=== PATIENT | male | born 1985 | race Caucasian/White ===

== ENCOUNTER 2019-01-05 11:28 | Day surgery (SDC) | payer OTHER ==
[~2019-01-05] VITALS: Ht 185.4 cm; Wt 94.0 kg
[2019-01-05 11:53] VITALS: BP 125/88
[2019-01-05] MEDS ORDERED: LACTATED RINGERS 1,000 ML IV SCH ×2 (11:55→15:32)
[2019-01-05] MEDS ORDERED: PLEASE ENTER HEIGHT AND WEIGHT MC SCH (12:00)
[2019-01-05] MEDS ORDERED: ROCURONIUM 10MG/ML,5ML ONE (12:44)
[2019-01-05] MEDS ORDERED: MIDAZOLAM 1 MG/ML, 2ML ONE (12:54)
[2019-01-05] MEDS ORDERED: FENTANYL PF 250 MCG/5ML ONE (12:55)
[2019-01-05] MEDS ORDERED: BUPIVACAINE/EPI 0.5% 1:200K ONE (13:19)
[2019-01-05] MEDS ORDERED: FENTANYL PF 100 MCG/2ML IV PRN (14:30)
[2019-01-05] MEDS ORDERED: ACETAMINOPHEN 325 MG TABLET PO PRN (14:30)
[2019-01-05] MEDS ORDERED: OXYcodone 5 MG/5 ML ORAL.SOL UDC PO PRN (14:30)
[2019-01-05] MEDS ORDERED: HYDROmorphone 2 MG/ML, 1ML IVPush PRN (14:30)
[2019-01-05] MEDS ORDERED: MEPERIDINE/PF 25MG/0.5ML IVPush PRN (14:30)
[2019-01-05] MEDS ORDERED: LABETALOL 5MG/ML, 20ML IV PRN (14:30)
[2019-01-05] MEDS ORDERED: ONDANSETRON 2MG/ML, 2ML IV PRN (14:30)
[2019-01-05] MEDS ORDERED: hydrALAzine 20 MG/ML, 1ML IV PRN (14:30)
[2019-01-05] MEDS ORDERED: PROMETHAZINE 25 MG/ML, 1ML IV PRN (14:30)
[2019-01-05] MEDS ORDERED: PROPOFOL 10 MG/ML, 20ML ONE (14:57)
[2019-01-05] MEDS ORDERED: ONDANSETRON 2MG/ML, 2ML ONE ×2 (14:58)
[2019-01-05] MEDS ORDERED: DEXAMETHASONE 4 MG/ML, 1ML ONE ×2 (14:58)
[2019-01-05] MEDS ORDERED: CEFAZOLIN 1,000 MG ONE ×2 (14:58)
[2019-01-05] MEDS ORDERED: KETOROLAC 30 MG/1 ML ONE (14:58)
[2019-01-05] MEDS ORDERED: ACETAMINOPHEN 650 MG/20.3 ML UDC ONE (15:40)
[2019-01-05] MEDS ORDERED: MEPERIDINE/PF 25MG/ML,1ML ONE (15:40)
[2019-01-05] MEDS ORDERED: OXYcodone 5 MG/5 ML ORAL.SOL UDC ONE (15:40)
[2019-01-05] MEDS ORDERED: PROMETHAZINE 25 MG/ML, 1ML ONE (15:45)
[2019-01-05] MEDS ORDERED: ONDANSETRON 2MG/ML, 2ML IVPush PRN (16:00)
[2019-01-05] MEDS ORDERED: morphine SULFATE 10 MG/ML, 1ML IVPush PRN (16:00)
== END 2019-01-05 17:50 | disposition home or self-care (01) ==
LOC: OUT 11:28
PROVIDERS: ATTEND Surgery
DX: K40.30 Unilateral inguinal hernia, with obstruction, without gangrene, not specified as recurrent (principal); F12.90 Cannabis use, unspecified, uncomplicated; Z98.890 Other specified postprocedural states
CPT/HCPCS: 49507; 64486; C1781; J0690; J1100; J1885; J2175; J2250; J2405; J2550; J2704; J3010; J7120

== ENCOUNTER 2019-05-20 16:56 | Emergency (ER) | payer OTHER ==
[~2019-05-20] VITALS: Ht 185.4 cm; Wt 98.0 kg
--- NOTE | 2019-05-20 17:29 | NUR ---
PT BIB [place] AFTER MAKING THREATS TO HARM SELF TO FAMILY. PT STATES THESE WERE "EMPTY THREATS" AND DENIES HAVING PLAN TO KILL SELF. PT PREVIOUSLY TOLD [facility] THAT HE HAD AN IDEA TO CUT HIS OWN THROAT OR [place]UMP [place]. PT IS ADAMANT THAT HE HAS NO PLAN THAT HE WOULD ACTUALLY GO THROUGH WITH AND THAT THESE WERE "EMPTY THREATS TO HIS FAMILY. PT IS TACHYCARDIC, ALL OTHER VSS ON RA. MD TO BS TO ASSESS PT. ORDERS RECEIVED. LABS DRAWN. PT UPSELF TO RR WITH STEADY GAIT TO COLLECT UTOX SAMPLE. AWAITING RESUTLS. PT IS IS SECURED ROOM [facility] SITTER AT DOORWAY. 1 BAG OF BELONGINGS LABELED AND PLACED IN LOCKER LOCKER. NO NEEDS AT THIS TIME. DINNER TRAY ORDERED.
[2019-05-20 17:33] LABS: BASOPHILS # (AUTO) 0.05 x10^3/uL (0-0.1); BASOPHILS % (AUTO) 1 % (0-1); EOSINOPHILS % (AUTO) 1 % (1-7); LYMPHOCYTES # (AUTO) 1.39 x10^3/uL (1-3.4); LYMPHOCYTES % (AUTO) 18 % (22-44); MD NO; MEAN CORPUSCULAR HEMOGLOBIN 32.6 pg (27.5-34.5); MEAN CORPUSCULAR HGB CONC 34.1 g/dL (33.2-36.2); MEAN CORPUSCULAR VOLUME 95.5 fL (81-97); MEAN PLATELET VOLUME 8.1 fL (7.4-10.4); MONOCYTES # (AUTO) 0.31 x10^3/uL (0.2-0.8); MONOCYTES % (AUTO) 4 % (2-9); NEUTROPHILS # (AUTO) 5.98 x10^3/uL (1.8-6.8); NEUTROPHILS % (AUTO) 76 % (42-75); PLATELET COUNT 317 x10^3/uL (130-400); RED BLOOD COUNT 5.12 x10^6/uL (4.38-5.82); RED CELL DISTRIBUTION WIDTH 12.3 % (9.4-14.8)
[2019-05-20 17:44] LABS: ALBUMIN 4.4 g/dL (3.4-5.0); ANION GAP 8 mmol/L (5-15); CALCIUM 8.7 mg/dL (8.5-10.1); CHLORIDE 109 mmol/L (98-107); CREATININE 0.88 mg/dL (0.7-1.3)
--- NOTE | 2019-05-20 17:45 | NUR ---
LUNCH TRAY GIVEN TO PT.
[2019-05-20 17:47] LABS: SALICYLATE LEVEL < 1.7 mg/dL (2.8-20.0)
[2019-05-20 18:08] LABS: AMPHETAMINE SCREEN, URINE Negative (Negative); BARBITURATE SCREEN, URINE Negative (Negative); BENZODIAZEPINE SCREEN, URINE Negative (Negative); CANNABINOID SCREEN, URINE Positive (Negative); COCAINE SCREEN, URINE Negative (Negative); METHADONE SCREEN, URINE Negative (Negative); OPIATE SCREEN, URINE Negative (Negative)
--- NOTE | 2019-05-20 19:03 | NUR ---
PT PACING IN SECURED ROOM. SITTER AT DOORWAY FOR CONTINUOUS MONITORING. PT DECLINED TO EAT LUNCH TRAY BUT WANTS TO KEEP IT IN ROOM FOR NOW. PT DENIES NEEDS AND IS CALM, COOPERATIVE AND POLITE.
--- NOTE | 2019-05-20 20:05 | NUR ---
PT CONTINUES PACING IN ROOM. PT MORE AGITATED WITH SITUATION. PT EDUCATED ON POC SEVERAL TIMES. PT REQUESTING TO BE REBRETHYLIZED IN HOPES OF BEING ASSESSED SOONER. PT REMAINS OVER LEGAL LIMIT. PT STATES HE JUST WANTS TO LEAVE AND IS REFUSING TO EAT DINNER TRAY AND REFUSING ALL DRINKS OFFERED. PT STATES, "I DON'T WANT ANYTHING FROM THIS ESTABLISHMENT. IT'S A BROWER GOUGE AND MY DAD IS GONNA HAVE TO PAY IT." SITTER REMAINS AT DOOR WAY FOR CONTINUOUS MONITORING. ROOM SECURED.
--- NOTE | 2019-05-20 21:36 | NUR ---
PT STILL PACING IN SECURED ROOM, TALKING TO HIMSELF UNDER HIS BREATH. PT REMAINS COOPERATIVE. NO OUTBURSTS, YELLING OR CUSSING. SITTER AT DOORWAY FOR CONTINUOUS MONITORING. NO NEEDS EXPRESSED.
--- NOTE | 2019-05-20 21:40 | NUR ---
REPORT OF PT FROM LEONARDO PATRICK AND ASSUMING CARE OF PT AT THIS TIME.
--- NOTE | 2019-05-20 21:58 | NUR ---
PT PACING ROOM AT THIS TIME. PT REFUSING OFFERS FOR MEDS, FLUIDS, AND FOODS. PT DENIES ANY OTHER NEEDS AT THIS TIME. SITTER OUTSIDE OF ROOM FOR DIRECT OBSERVATION OF PT.
--- NOTE | 2019-05-20 22:20 | NUR ---
PT CALM IN ROOM AT THIS TIME AND DENIES ANY NEEDS AT THIS MOMENT.
--- NOTE | 2019-05-21 00:55 | NUR ---
pt sitting on gurney resting comfortably at this time. pt denies any other needs at this time.
--- NOTE | 2019-05-21 01:53 | NUR ---
report given to telepsych doctor
--- NOTE | 2019-05-21 02:12 | NUR ---
PT GIVEN ONE BAG OF BELONGINGS AND HIS DC PAPERWORK. ALL QUESTIONS ANSWERED.
[2019-05-21 02:13] VITALS: BP 121/74
== END 2019-05-21 02:15 | disposition home or self-care (01) ==
LOC: ED 18:05
DX: R45.851 Suicidal ideations (principal); F31.9 Bipolar disorder, unspecified; F10.120 Alcohol abuse with intoxication, uncomplicated
CPT/HCPCS: 36415; 80048; 80307; 82040; 85025; 99284

== ENCOUNTER 2020-08-03 19:12 | Emergency (ER) | payer SELFPAY ==
[~2020-08-03] VITALS: Ht 185.4 cm; Wt 94.0 kg
[2020-08-03] MEDS ORDERED: ONDANSETRON 2MG/ML, 2ML IVPush ONE (19:30)
[2020-08-03] MEDS ORDERED: HYDROmorphone 2 MG/ML, 1ML IVPush PRN (19:30)
[2020-08-03] MEDS ORDERED: SODIUM CHLORIDE FLUSH 10ML SYR IVF ONE (19:30)
--- NOTE | 2020-08-03 19:30 | NUR ---
AT BEDSIDE FOR ASSESSMENT
--- NOTE | 2020-08-03 19:38 | NUR ---
PT COMES IN TODAY C/O RIGHT LOWER QUADRANT PAIN. PT STATES THAT AROUND 1600 TODAY HE WAS SLEEPING AND WOKE UP UNABLE TO STAND DUE TO RIGHT LOWER QUADRANT PAIN. STATES HE HAS HAD NAUSEA AND VOMITED APPROX 3X ON THE WAY TO THE ED. PT STATES 9/10 RIGHT LOWER PELVIC PAIN. MONITORS CONNECTED.
[2020-08-03] MEDS ORDERED: ONDANSETRON 2MG/ML, 2ML ONE (19:44)
[2020-08-03] MEDS ORDERED: HYDROmorphone 1 MG/ML, 1ML INJ ONE (19:44)
[2020-08-03 20:12] LABS: BASOPHILS % (AUTO) 1 % (0-1); EOSINOPHILS % (AUTO) 1 % (1-7); LYMPHOCYTES % (AUTO) 21 % (22-44); MEAN CORPUSCULAR HEMOGLOBIN 32.5 pg (27.5-34.5); MEAN PLATELET VOLUME 8.1 fL (7.4-10.4); MONOCYTES % (AUTO) 5 % (2-9); NEUTROPHILS % (AUTO) 73 % (42-75); PLATELET COUNT 244 x10^3/uL (130-400); RED BLOOD COUNT 4.54 x10^6/uL (4.38-5.82)
[2020-08-03 20:13] LABS: MD NO
[2020-08-03 20:22] LABS: ALBUMIN 3.7 g/dL (3.4-5.0); ANION GAP 5 mmol/L (5-15); CALCIUM 8.3 mg/dL (8.5-10.1); CHLORIDE 107 mmol/L (98-107)
--- NOTE | 2020-08-03 20:22 | NUR ---
IV STARTED. ORDERED MEDICATIONS ADMINISTERED. PT TO US
[2020-08-03 21:00] VITALS: BP 110/63
--- NOTE | 2020-08-03 21:01 | NUR ---
PT SITTING ON EDGE OF BED ATTEMPTING TO URINATE. STATES PAIN "MUCH BETTER". VSS. NAD. CALL LIGHT W/IN REACH. WILL CONTINUE TO MONITOR
[2020-08-03] MEDS ORDERED: OMNIPAQUE 350 MG/ML, 100ML BOTTLE ONE (22:10)
== END 2020-08-03 21:48 | disposition home or self-care (01) ==
LOC: ED 21:00
DX: K40.90 Unilateral inguinal hernia, without obstruction or gangrene, not specified as recurrent (principal)
CPT/HCPCS: 36415; 74177; 76857; 80048; 82040; 83605; 85025; 96374; 96375; 99285; J1170; J2405; Q9967